=== PATIENT | female | born 1970 | race Caucasian/White ===

== ENCOUNTER 2023-09-26 10:19 | Emergency (ER) | payer MEDICAID, OTHER ==
[~2023-09-26] VITALS: Ht 152.4 cm; Wt 68.0 kg
[2023-09-26] MEDS ORDERED: ACETAMINOPHEN 500 MG TABLET ONE (10:43)
[2023-09-26] MEDS: ACETAMINOPHEN 500 MG TABLET PO ONE (10:46)
[2023-09-26] MEDS ORDERED: LIDO30AD10 TP (12:24)
[2023-09-26] MEDS ORDERED: CYCL5TAB PO (12:24)
[2023-09-26] MEDS ORDERED: IBUP-1955 PO (12:24)
[2023-09-26 12:49] VITALS: BP 142/77; TEMP 97.2; O2SAT 97
== END 2023-09-26 12:52 | disposition home or self-care (01) ==
LOC: ER 10:19
DX: S46.812A Strain of other muscles, fascia and tendons at shoulder and upper arm level, left arm, initial encounter (principal); S20.212A Contusion of left front wall of thorax, initial encounter; V89.2XXA Person injured in unspecified motor-vehicle accident, traffic, initial encounter; Y93.89 Activity, other specified; Y92.89 Other specified places as the place of occurrence of the external cause; Y99.8 Other external cause status
CPT/HCPCS: 71045; 73030; A4606; A4663; A9150